=== PATIENT | female | born 1995 | race Native Hawaiian/Other Pacific Islander ===

== ENCOUNTER 2018-07-14 03:22 | Outpatient (CLI) | payer OTHER ==
[2018-07-14] MEDS ORDERED: KEPPRA750 MG PO (03:42)
== END 2018-07-14 03:26 | disposition short-term general hospital (02) ==
LOC: AMB 03:22
DX: M25.562 Pain in left knee (principal); Y04.8XXA Assault by other bodily force, initial encounter; Y92.89 Other specified places as the place of occurrence of the external cause; Y99.8 Other external cause status
CPT/HCPCS: A0425; A0429

== ENCOUNTER 2018-07-14 03:29 | Emergency (ER) | payer OTHER ==
[~2018-07-14] VITALS: Ht 157.5 cm; Wt 71.2 kg
[2018-07-14] MEDS ORDERED: KEPPRA750 MG PO (03:42)
[2018-07-14 03:47] VITALS: TEMP 98.3
[2018-07-14 06:15] VITALS: BP 128/80
== END 2018-07-14 06:17 | disposition home or self-care (01) ==
LOC: ED 03:39
DX: M25.562 Pain in left knee (principal); X50.9XXA Other and unspecified overexertion or strenuous movements or postures, initial encounter; Y92.89 Other specified places as the place of occurrence of the external cause
CPT/HCPCS: 96372; 99283; J1885

== ENCOUNTER 2018-07-28 23:10 | Emergency (ER) | payer OTHER ==
[~2018-07-28] VITALS: Ht 157.5 cm; Wt 71.2 kg
[~2018-07-28 23:10] MED LIST: KEPPRA750 MG PO
[2018-07-28 23:36] VITALS: BP 137/77; TEMP 97
== END 2018-07-29 | disposition home or self-care (01) ==
LOC: ED 23:10
DX: K08.89 Other specified disorders of teeth and supporting structures (principal); R06.9 Unspecified abnormalities of breathing
CPT/HCPCS: 99281